=== PATIENT | female | born 1950 | race Caucasian/White ===

== ENCOUNTER 2020-07-20 14:39 | Emergency (ER) | payer OTHER ==
[~2020-07-20] VITALS: Ht 172.7 cm; Wt 52.2 kg
[2020-07-20] MEDS ORDERED: IBU800 MG PO (19:21)
== END 2020-07-20 19:42 | disposition home or self-care (01) ==
LOC: ER 14:39
DX: S92.355A Nondisplaced fracture of fifth metatarsal bone, left foot, initial encounter for closed fracture (principal); R60.0 Localized edema; W01.198A Fall on same level from slipping, tripping and stumbling with subsequent striking against other object, initial encounter; Y93.K1 Activity, walking an animal; Y92.832 Beach as the place of occurrence of the external cause; Y99.8 Other external cause status

== ENCOUNTER 2020-08-05 10:53 | Outpatient (CLI) | payer OTHER ==
[~2020-08-05 10:53] MED LIST: IBU800 MG PO
== END 2020-08-05 11:03 | disposition home or self-care (01) ==
LOC: RAD 10:53
PROVIDERS: ATTEND Orthopaedic Surgery
DX: M79.672 Pain in left foot (principal)

== ENCOUNTER 2020-08-09 07:18 | Outpatient (CLI) | payer OTHER | END 2020-08-09 07:25 | disposition home or self-care (01) | LOC: LAB 07:18 | PROVIDERS: ATTEND Orthopaedic Surgery | DX: E55.9 Vitamin D deficiency, unspecified (principal); M85.9 Disorder of bone density and structure, unspecified; E21.3 Hyperparathyroidism, unspecified; E88.89 Other specified metabolic disorders; M81.8 Other osteoporosis without current pathological fracture; E56.1 Deficiency of vitamin K ==

== ENCOUNTER 2020-08-22 07:27 | Emergency (ER) | payer OTHER ==
[~2020-08-22] VITALS: Ht 167.6 cm; Wt 55.3 kg
[2020-08-22] MEDS ORDERED: KETO10TA2 PO (10:14)
[2020-08-22] MEDS ORDERED: NORFLEX100MG PO (10:14)
[2020-08-22] MEDS ORDERED: ESCITALOPRAM OX10 MG PO (10:19)
== END 2020-08-22 10:42 | disposition home or self-care (01) ==
LOC: ER 07:27
DX: M54.2 Cervicalgia (principal)

== ENCOUNTER 2020-08-28 08:42 | Outpatient (CLI) | payer OTHER ==
[~2020-08-28 08:42] MED LIST changes: +ESCITALOPRAM OX10 MG PO; +KETO10TA2 PO; +NORFLEX100MG PO
[2020-08-29] MEDS ORDERED: PERCOCET 10-321 EACH (15:08)
[2020-08-29] MEDS ORDERED: ULTRACET (15:09)
== END 2020-08-28 08:57 | disposition home or self-care (01) ==
LOC: RAD 08:42
PROVIDERS: ATTEND Specialist
DX: M47.812 Spondylosis without myelopathy or radiculopathy, cervical region (principal)

== ENCOUNTER 2020-08-29 14:33 | Emergency (ER) | payer OTHER ==
[~2020-08-29] VITALS: Ht 167.6 cm; Wt 55.8 kg
[2020-08-29] MEDS ORDERED: PERCOCET 10-321 EACH (15:08)
[2020-08-29] MEDS ORDERED: ULTRACET (15:09)
== END 2020-08-29 17:19 | disposition home or self-care (01) ==
LOC: ER 14:33
DX: R42 Dizziness and giddiness (principal); R11.11 Vomiting without nausea; T39.1X5A Adverse effect of 4-Aminophenol derivatives, initial encounter; T42.8X5A Adverse effect of antiparkinsonism drugs and other central muscle-tone depressants, initial encounter; Y92.89 Other specified places as the place of occurrence of the external cause

== ENCOUNTER 2020-10-08 12:12 | Outpatient (CLI) | payer OTHER ==
[~2020-10-08 12:12] MED LIST changes: +PERCOCET 10-321 EACH; +ULTRACET
== END 2020-10-08 12:18 | disposition home or self-care (01) ==
LOC: NUCLEAR 12:12
PROVIDERS: ATTEND Orthopaedic Surgery
DX: M81.0 Age-related osteoporosis without current pathological fracture (principal)

== ENCOUNTER → 2020-10-28 | Outpatient (CLI) | payer OTHER | END | disposition home or self-care (01) | LOC: RAD 08:55 | PROVIDERS: ATTEND Ophthalmology | DX: I10 Essential (primary) hypertension (principal); M25.552 Pain in left hip ==

== ENCOUNTER 2020-10-31 09:43 | Outpatient (CLI) | payer OTHER | END 2020-10-31 09:56 | disposition home or self-care (01) | LOC: RAD 09:43 | PROVIDERS: ATTEND Orthopaedic Surgery | DX: M25.552 Pain in left hip (principal) ==

== ENCOUNTER → 2020-12-24 | Outpatient (CLI) | payer OTHER | END | disposition home or self-care (01) | LOC: RAD 12:14 | PROVIDERS: ATTEND Orthopaedic Surgery | DX: M25.552 Pain in left hip (principal) ==

== ENCOUNTER 2022-03-22 09:22 | Outpatient (CLI) | payer OTHER | END 2022-03-22 09:56 | disposition home or self-care (01) | LOC: RAD 09:22 | PROVIDERS: ATTEND Orthopaedic Surgery | DX: M25.571 Pain in right ankle and joints of right foot (principal); M79.644 Pain in right finger(s) ==

== ENCOUNTER 2022-04-20 13:00 | Outpatient (CLI) | payer OTHER | END 2022-04-20 13:04 | disposition home or self-care (01) | LOC: NUCLEAR 13:00 | PROVIDERS: ATTEND Orthopaedic Surgery | DX: M81.0 Age-related osteoporosis without current pathological fracture (principal) ==

== ENCOUNTER 2022-04-27 06:55 | Outpatient (CLI) | payer OTHER | END 2022-04-27 06:56 | disposition home or self-care (01) | LOC: LAB 06:55 | PROVIDERS: ATTEND Orthopaedic Surgery | DX: E56.1 Deficiency of vitamin K (principal) ==

== ENCOUNTER 2023-02-23 07:50 | Emergency (ER) | payer OTHER ==
[~2023-02-23] VITALS: Ht 167.6 cm; Wt 54.0 kg
[2023-02-23 10:27] LABS: HEMATOCRIT 38.9 % (36.0-45.00); HEMOGLOBIN 13.2 g/dL (12.0-15.00); MEAN CELL VOLUME 96.5 fL (80.00-100.00); MEAN CORPUSCULAR HEMOGLOBIN 32.9 pg (27.00-32.0); MEAN CORPUSCULAR HGB CONC 34.1 g/dl (32.0-36.0); PLATELET COUNT 254 K/uL (150-450); RED BLOOD COUNT 4.03 M/uL (4.00-6.00); RED CELL DISTRIBUTION WIDTH 14.5 % (11.5-14.5)
[2023-02-23 11:02] LABS: CALCIUM 9.7 mg/dL (8.5-10.1); CREATININE SERUM 0.62 mg/dL (0.55-1.02); GFR 94.89; POTASSIUM 3.92 mEq/L (3.5-5.1)
== END 2023-02-23 11:56 | disposition home or self-care (01) ==
LOC: ER 07:51
PROVIDERS: General Practice
DX: R51.9 Headache, unspecified (principal); I10 Essential (primary) hypertension; Z90.11 Acquired absence of right breast and nipple

== ENCOUNTER → 2023-09-16 08:26 | Outpatient (CLI) | payer OTHER ==
[2023-09-16 09:58] LABS: ALBUMIN 4.3 gm/dL (3.4-5.0); BILIRUBIN TOTAL 0.43 mg/dL (0.3-1.2); CALCIUM 9.2 mg/dL (8.5-10.1); CREATININE SERUM 0.53 mg/dL (0.55-1.02); GFR 113.72; GLOBULINA 3.1 G/DL (2.4-3.5); PHOSPHOROUS 3.1 mg/dL (2.5-4.9); POTASSIUM 4.51 mEq/L (3.5-5.1); TOTAL PROTEIN 7.4 gm/dL (6.4-8.2)
== END | disposition home or self-care (01) ==
LOC: LAB 08:26
PROVIDERS: ATTEND Orthopaedic Surgery
DX: E55.9 Vitamin D deficiency, unspecified (principal); M85.9 Disorder of bone density and structure, unspecified; E56.1 Deficiency of vitamin K; E21.3 Hyperparathyroidism, unspecified; E88.89 Other specified metabolic disorders; M81.8 Other osteoporosis without current pathological fracture

== ENCOUNTER 2023-09-22 13:29 | Outpatient (CLI) | payer OTHER | END 2023-09-22 13:30 | disposition home or self-care (01) | LOC: NUCLEAR 13:29 | PROVIDERS: ATTEND Orthopaedic Surgery | DX: M81.0 Age-related osteoporosis without current pathological fracture (principal) ==

== ENCOUNTER 2023-11-21 07:53 | Outpatient (CLI) | payer OTHER | END 2023-11-21 07:58 | disposition home or self-care (01) | LOC: RAD 07:53 | PROVIDERS: ATTEND Orthopaedic Surgery | DX: M25.561 Pain in right knee (principal) ==

== ENCOUNTER 2023-11-24 07:04 | Outpatient (CLI) | payer OTHER ==
[2023-11-24 08:18] LABS: PH,URINE 7.5 (5.0-8.0); URINE APPEARANCE Clear; URINE BILIRRUBIN Negative (NEGATIVE); URINE BLOOD Negative; URINE COLOR Yellow; URINE GLUCOSE Negative (NEGATIVE); URINE KETONE Negative (NEGATIVE); URINE LEUKOCYTE Negative; URINE NITRATE Negative; URINE PROTEIN Negative (NEGATIVE); URINE UROBILINOGEN 0.2 E.U./dl
[2023-11-24 08:19] LABS: HEMATOCRIT 36.3 % (36.0-45.00); HEMOGLOBIN 11.9 g/dL (12.0-15.00); MEAN CELL VOLUME 97.3 fL (80.00-100.00); MEAN CORPUSCULAR HEMOGLOBIN 31.9 pg (27.00-32.0); MEAN CORPUSCULAR HGB CONC 32.8 g/dl (32.0-36.0); PLATELET COUNT 256 K/uL (150-450); RED BLOOD COUNT 3.74 M/uL (4.00-6.00); RED CELL DISTRIBUTION WIDTH 14.1 % (11.5-14.5)
[2023-11-24 08:19] LABS: URINE BACTERIA 6.2 uL (0.0-1933); URINE EPITHELIAL CELLS 1.5 uL (0.0-38.8)
[2023-11-24 08:21] LABS: URINE WBC 0.7 uL (0.0-23.2)
[2023-11-24 08:59] LABS: INR < 0.93; PARTIAL THROMBOPLASTIN TIME 30.7 SECONDS (22.0-34.0); PROTHROMBIN TIME 10.2 SECONDS (9.0-11.5)
[2023-11-24 09:05] LABS: ALBUMIN 4.2 gm/dL (3.4-5.0); BILIRUBIN TOTAL 0.53 mg/dL (0.3-1.2); CALCIUM 9.1 mg/dL (8.5-10.1); CREATININE SERUM 0.58 mg/dL (0.55-1.02); GFR 102.48; POTASSIUM 4.73 mEq/L (3.5-5.1); TOTAL PROTEIN 7.2 gm/dL (6.4-8.2)
== END 2023-11-24 07:07 | disposition home or self-care (01) ==
LOC: LAB 07:04
PROVIDERS: ATTEND Orthopaedic Surgery
DX: D64.9 Anemia, unspecified (principal); I10 Essential (primary) hypertension; D68.9 Coagulation defect, unspecified; N39.0 Urinary tract infection, site not specified; M48.061 Spinal stenosis, lumbar region without neurogenic claudication; M54.16 Radiculopathy, lumbar region

== ENCOUNTER 2023-12-26 07:41 | Outpatient (CLI) | payer OTHER | END 2023-12-26 07:45 | disposition home or self-care (01) | LOC: TOM 07:41 | PROVIDERS: ATTEND Orthopaedic Surgery | DX: M48.061 Spinal stenosis, lumbar region without neurogenic claudication (principal); M54.16 Radiculopathy, lumbar region ==

== ENCOUNTER 2024-05-19 07:10 | Outpatient (CLI) | payer OTHER ==
[2024-05-19 08:02] LABS: PH,URINE 7.5 (5.0-8.0); URINE APPEARANCE Clear; URINE BILIRRUBIN Negative (NEGATIVE); URINE BLOOD Negative; URINE COLOR Yellow; URINE GLUCOSE Negative (NEGATIVE); URINE KETONE Negative (NEGATIVE); URINE LEUKOCYTE Trace; URINE NITRATE Negative; URINE PROTEIN Negative (NEGATIVE); URINE UROBILINOGEN 0.2 E.U./dl
[2024-05-19 08:03] LABS: URINE BACTERIA 91.7 uL (0.0-1933); URINE EPITHELIAL CELLS 9.4 uL (0.0-38.8); URINE RBC 20.8 uL (0.0-20.8); URINE WBC 5.2 uL (0.0-23.2)
[2024-05-19 08:15] LABS: INR 0.94; PARTIAL THROMBOPLASTIN TIME 29.9 SECONDS (22.0-34.0); PROTHROMBIN TIME 10.3 SECONDS (9.0-11.5)
[2024-05-19 08:18] LABS: HEMATOCRIT 37.2 % (36.0-45.00); HEMOGLOBIN 12.8 g/dL (12.0-15.00); MEAN CELL VOLUME 95.8 fL (80.00-100.00); MEAN CORPUSCULAR HEMOGLOBIN 32.9 pg (27.00-32.0); MEAN CORPUSCULAR HGB CONC 34.3 g/dl (32.0-36.0); PLATELET COUNT 224 K/uL (150-450); RED BLOOD COUNT 3.88 M/uL (4.00-6.00)
[2024-05-19 08:41] LABS: ALBUMIN 4.5 gm/dL (3.4-5.0); BILIRUBIN TOTAL 0.57 mg/dL (0.3-1.2); CALCIUM 9.7 mg/dL (8.5-10.1); CREATININE SERUM 0.6 mg/dL (0.55-1.02); GFR 98.27; POTASSIUM 4.28 mEq/L (3.5-5.1); TOTAL PROTEIN 7.5 gm/dL (6.4-8.2); TSH 2.69 uIU/mL (0.358-3.74)
== END 2024-05-19 07:14 | disposition home or self-care (01) ==
LOC: LAB 07:10
PROVIDERS: ATTEND Orthopaedic Surgery
DX: D64.9 Anemia, unspecified (principal); I10 Essential (primary) hypertension; D68.9 Coagulation defect, unspecified; N39.0 Urinary tract infection, site not specified

== ENCOUNTER → 2024-12-20 11:54 | Outpatient (CLI) | payer OTHER | END | disposition home or self-care (01) | LOC: NUCLEAR 11:54 | PROVIDERS: ATTEND Orthopaedic Surgery | DX: M81.0 Age-related osteoporosis without current pathological fracture (principal) ==

== ENCOUNTER 2024-12-31 07:27 | Outpatient (CLI) | payer OTHER | END 2024-12-31 07:35 | disposition home or self-care (01) | LOC: RAD 07:27 | PROVIDERS: ATTEND Orthopaedic Surgery | DX: M79.671 Pain in right foot (principal); M79.672 Pain in left foot; M48.061 Spinal stenosis, lumbar region without neurogenic claudication; M54.16 Radiculopathy, lumbar region ==